=== PATIENT | male | born 1990 | race Caucasian/White ===

== ENCOUNTER 2018-01-30 22:12 | Emergency (ER) | payer OTHER ==
[~2018-01-30] VITALS: Ht 188 cm; Wt 79.4 kg
[~2018-01-30 22:12] MED LIST: AMOX500 PO; ANTOXYBENA LEFTEAR; Cortisporin Ear10 ML LEFTEAR; DIPH50; HYDACE5 PO; Veetids 500500 MG PO; Zofran8 MG PO
[2018-01-30] MEDS ORDERED: Garamycin5 ML LEFTEYE (23:10)
== END 2018-01-30 23:30 | disposition home or self-care (01) ==
LOC: ER 22:12
DX: S05.02XA Injury of conjunctiva and corneal abrasion without foreign body, left eye, initial encounter (principal); H10.9 Unspecified conjunctivitis; F17.210 Nicotine dependence, cigarettes, uncomplicated; Z88.2 Allergy status to sulfonamides; X58.XXXA Exposure to other specified factors, initial encounter
CPT/HCPCS: 99282